=== PATIENT | male | born 1980 | race Caucasian/White ===

== ENCOUNTER 2017-04-21 15:02 | Emergency (ER) | payer SELFPAY ==
--- NOTE | 2017-04-21 15:26 | ED CLINICAL REPORT ---
Clinical Report - Physicians/Mid Levels [facility] [address] [place] [address] 04/21/2017 15:02 Patient: TONYA JENKINS Time Seen: 16:21 Apr 21 2017. Arrived- By private vehicle. HISTORY OF PRESENT ILLNESS Chief Complaint: DENTAL PAIN. (Patient woke up with dental pain, worsening on the upper aspect, with swelling. Reports history of prior IV drug use, has been clean for 9 years, however this took a total 1 his teeth. Denies any difficulty with swallowing.). REVIEW OF SYSTEMS No fever, cough, difficulty breathing, chest pain or diarrhea. No abdominal pain. All systems otherwise negative, except as recorded above. SOCIAL HISTORY Current every day smoker. Alcohol use. History of drug use: marijuana. ADDITIONAL NOTES The nursing notes have been reviewed. PHYSICAL EXAM Vital Signs: 04/21/2017 15:08 BP: 141/98. HR: 98. RR: 16. O2 saturation: 98%. Temp: 98.9 F. Pain level now: 0/10. Appearance: Alert. Head: Normal external inspection. Eyes: Conjunctivae and eyelids normal. ENT: Nose normal. Pharynx normal. Lips normal. No trismus present. Uvula midline. No purulent nasal discharge. Neck: Trachea midline. No adenopathy. No meningeal signs. CVS: Normal heart rate and rhythm. Heart sounds normal. Respiratory: No respiratory distress. Breath sounds normal. Neuro: Oriented X 3. PROGRESS AND PROCEDURES Course of Care: Here in the ER patient with no signs of uvular shift. No facial swelling. No trismus. No signs of Bird's angina. Patient afebrile. Patient very stable. Fall palpation. Patient is stable. Patient/family counseled. Disposition: Discharged. CLINICAL IMPRESSION Mild dental pain. INSTRUCTIONS Drink plenty of fluids. (salt water rinses). Prescription Medications: Amoxicillin 500 mg capsules: take 1 orally every 8 hours. No refills. Follow-up: Follow up with your doctor in three days. (Electronically signed by Cleo Byrd P.A.-C 04/21/2017 16:55)
--- NOTE | 2017-04-21 15:26 | ED NURSING NOTES ---
Clinical Report - Nurses [facility] [address] [place] [address] 04/21/2017 15:02 Patient: TONYA JENKINS TRIAGE Triage time 15:Apr 21 2017. Acuity: LEVEL 3. Chief Complaint: SWELLING OF JAW / FACE. Alert. No acute distress. --15:11 Lo Wetzel R.N. 15:08 04/21/17. BP: 141/98. HR: 98. RR: 16. O2 saturation: 98%. Temp: 98.9 F. Pain level now: 0/10. --15:11 Lo Wetzel R.N. ( pt denies pain). --15:34 Lo Wetzel R.N. 15:34 04/21/17. Pain level now: 0/10. --15:34 Lo Wetzel R.N. Weight: 72.5 kg stated. Height/Length: 70 inches Per Patient. BMI: 22.9. --15:11 Lo Wetzel R.N. Medications Methadone HCl Oral 95mg, daily. --15:09 Lo Wetzel R.N. Allergies None. --15:09 Lo Wetzel R.N. History Arrived by private vehicle. Historian: patient. This started today. He has had swelling of the left jaw. Treatment BAG LOADER: None. PAST MEDICAL HX: Immunizations: up-to-date. SOCIAL HX: Current every day heavy tobacco smoker (cigarette)- 1 pack per day. Occasional alcohol use. History of drug use: marijuana. No infectious disease exposure. SELF HARM ASSESSMENT: A self harm assessment was performed. The patient answered "no" to the question "Do you have thoughts of harming or killing yourself?" and "Have you recently had thoughts about harming or killing others?". FALL RISK ASSESSMENT: Fall risk assessment completed. No fall risk identified. NUTRITIONAL RISK ASSESSMENT: The nutritional risk assessment revealed no deficiencies. FUNCTIONAL ASSESSMENT: Functional assessment: no impairments noted. LEARNING NEEDS ASSESSMENT: The learning needs assessment revealed no barriers. ABUSE ASSESSMENT: Abuse assessment: The patient was asked "Do you feel safe in your home?". SKIN INTEGRITY ASSESSMENT: Skin integrity risk assessment completed. No skin integrity risk identified. --15:11 Lo Wetzel R.N. PROBLEMS: Soft Tissue Foreign Body. Rib Fracture. Tetanus Status. Dental Caries. Immunizations. Abdominal Pain. Constipation. Crohn's Disease. Addiction. --15:09 Lo Wetzel R.N. ADDITIONAL SURGERIES: Appendectomy. Fracture Repair. --15:09 Lo Wetzel R.N. Interventions ID band on patient. To room. --15:11 Lo Wetzel R.N. PHYSICAL ASSESSMENT Ambulatory to room. GENERAL / NEURO / PSYCH: Alert. Oriented X 4. Appears in no acute distress. HEENT: Voice within normal limits. Dental decay. RESPIRATORY: Respirations not labored. SKIN: Skin is warm and dry. --15:12 Lo Wetzel R.N. NURSING PROGRESS NOTES Patient identifiers checked. Call light placed in reach. Patient placed in chair. --15:12 Lo Wetzel R.N. DISPOSITION / DISCHARGE Departure time: 15:34 Apr 21 2017. Condition at departure: unchanged. No learning barriers present. Discharge instructions provided and reviewed with the patient. Reviewed referral to a dentist and primary care physician for followup. Patient verbalized understanding. Written instructions provided in Italian. The patient was discharged home. He left the Emergency Department ambulatory and via private vehicle. Patient driving. FALL RISK ASSESSMENT: Fall risk assessment completed. No fall risk identified. --15:34 Lo Wetzel R.N. Locked/Released at 04/22/2017 0:08 by Lo Wetzel R.N.
--- NOTE | 2017-04-21 15:26 | ED CLINICAL REPORT ---
Clinical Report - Physicians/Mid Levels [facility] [address] [place] [address] 04/21/2017 15:02 Patient: TONYA JENKINS Time Seen: 16:21 Apr 21 2017. Arrived- By private vehicle. HISTORY OF PRESENT ILLNESS Chief Complaint: DENTAL PAIN. (Patient woke up with dental pain, worsening on the upper aspect, with swelling. Reports history of prior IV drug use, has been clean for 9 years, however this took a total 1 his teeth. Denies any difficulty with swallowing.). REVIEW OF SYSTEMS No fever, cough, difficulty breathing, chest pain or diarrhea. No abdominal pain. All systems otherwise negative, except as recorded above. SOCIAL HISTORY Current every day smoker. Alcohol use. History of drug use: marijuana. ADDITIONAL NOTES The nursing notes have been reviewed. PHYSICAL EXAM Vital Signs: 04/21/2017 15:08 BP: 141/98. HR: 98. RR: 16. O2 saturation: 98%. Temp: 98.9 F. Pain level now: 0/10. Appearance: Alert. Head: Normal external inspection. Eyes: Conjunctivae and eyelids normal. ENT: Nose normal. Pharynx normal. Lips normal. No trismus present. Uvula midline. No purulent nasal discharge. Neck: Trachea midline. No adenopathy. No meningeal signs. CVS: Normal heart rate and rhythm. Heart sounds normal. Respiratory: No respiratory distress. Breath sounds normal. Neuro: Oriented X 3. PROGRESS AND PROCEDURES Course of Care: Here in the ER patient with no signs of uvular shift. No facial swelling. No trismus. No signs of Bird's angina. Patient afebrile. Patient very stable. Fall palpation. Patient is stable. Patient/family counseled. Disposition: Discharged. CLINICAL IMPRESSION Mild dental pain. INSTRUCTIONS Drink plenty of fluids. (salt water rinses). Prescription Medications: Amoxicillin 500 mg capsules: take 1 orally every 8 hours. No refills. Follow-up: Follow up with your doctor in three days. (Electronically signed by Cleo Byrd P.A.-C 04/21/2017 16:55)
--- NOTE | 2017-04-21 15:26 | ED NURSING NOTES ---
Clinical Report - Nurses [facility] [address] [place] [address] 04/21/2017 15:02 Patient: TONYA JENKINS TRIAGE Triage time 15:Apr 21 2017. Acuity: LEVEL 3. Chief Complaint: SWELLING OF JAW / FACE. Alert. No acute distress. --15:11 Lo Wetzel R.N. 15:08 04/21/17. BP: 141/98. HR: 98. RR: 16. O2 saturation: 98%. Temp: 98.9 F. Pain level now: 0/10. --15:11 Lo Wetzel R.N. ( pt denies pain). --15:34 Lo Wetzel R.N. 15:34 04/21/17. Pain level now: 0/10. --15:34 Lo Wetzel R.N. Weight: 72.5 kg stated. Height/Length: 70 inches Per Patient. BMI: 22.9. --15:11 Lo Wetzel R.N. Medications Methadone HCl Oral 95mg, daily. --15:09 Lo Wetzel R.N. Allergies None. --15:09 Lo Wetzel R.N. History Arrived by private vehicle. Historian: patient. This started today. He has had swelling of the left jaw. 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 PAST MEDICAL HX: Immunizations: up-to-date. SOCIAL HX: Current every day heavy tobacco smoker (cigarette)- 1 pack per day. Occasional alcohol use. History of drug use: marijuana. No infectious disease exposure. SELF HARM ASSESSMENT: A self harm assessment was performed. The patient answered "no" to the question "Do you have thoughts of harming or killing yourself?" and "Have you recently had thoughts about harming or killing others?". FALL RISK ASSESSMENT: Fall risk assessment completed. No fall risk identified. NUTRITIONAL RISK ASSESSMENT: The nutritional risk assessment revealed no deficiencies. FUNCTIONAL ASSESSMENT: Functional assessment: no impairments noted. LEARNING NEEDS ASSESSMENT: The learning needs assessment revealed no barriers. ABUSE ASSESSMENT: Abuse assessment: The patient was asked "Do you feel safe in your home?". SKIN INTEGRITY ASSESSMENT: Skin integrity risk assessment completed. No skin integrity risk identified. --15:11 Lo Wetzel R.N. PROBLEMS: Soft Tissue Foreign Body. Rib Fracture. Tetanus Status. Dental Caries. Immunizations. Abdominal Pain. Constipation. Crohn's Disease. Addiction. --15:09 Lo Wetzel R.N. ADDITIONAL SURGERIES: Appendectomy. Fracture Repair. --15:09 Lo Wetzel R.N. Interventions ID band on patient. To room. --15:11 Lo Wetzel R.N. PHYSICAL ASSESSMENT Ambulatory to room. GENERAL / NEURO / PSYCH: Alert. Oriented X 4. Appears in no acute distress. HEENT: Voice within normal limits. Dental decay. RESPIRATORY: Respirations not labored. SKIN: Skin is warm and dry. --15:12 Lo Wetzel R.N. NURSING PROGRESS NOTES Patient identifiers checked. Call light placed in reach. Patient placed in chair. --15:12 Lo Wetzel R.N. DISPOSITION / DISCHARGE Departure time: 15:34 Apr 21 2017. Condition at departure: unchanged. No learning barriers present. Discharge instructions provided and reviewed with the patient. Reviewed referral to a dentist and primary care physician for followup. Patient verbalized understanding. Written instructions provided in Maltese. The patient was discharged home. He left the Emergency Department ambulatory and via private vehicle. Patient driving. FALL RISK ASSESSMENT: Fall risk assessment completed. No fall risk identified. --15:34 Lo Wetzel R.N. Locked/Released at 04/22/2017 0:08 by Lo Wetzel R.N.
--- NOTE | 2017-04-22 00:08 | ED MAR SUMMARY ---
..... Medication Administration Record [facility] [address] [place], [place] [id number] Patient: TONYA JENKINS Visit ID: [id number] 36y, M Weight: 72.5 kg Height/Length: 70 in BMI: 22.9 ALLERGIES: None
--- NOTE | 2017-04-22 00:08 | ED DISCHARGE INSTRUCTIONS ---
Patient: TONYA JENKINS General Instructions VisitID: [id number] [place] [address] 36y, M Registration Date/Time: 04/21/2017 Mild dental pain. INSTRUCTIONS Drink plenty of fluids. (salt water rinses). Prescription Medications: Amoxicillin 500 mg capsules: take 1 orally every 8 hours. No refills. Follow-up: Follow up with your doctor in three days. ADDITIONAL INFORMATION Dental Pain A crack or cavity in the tooth, which exposes the sensitive inner area of the tooth can cause tooth pain. An infection in the gum or the root of the tooth can cause pain and swelling. The pain is often made worse by drinking hot or cold fluids, or biting on hard foods. Pain may spread from the tooth to the ear or jaw on the same side. Home Care: Avoid hot and cold foods and liquids since your tooth may be sensitive to temperature changes. If your tooth is chipped or cracked, or if there is a large open cavity, apply OIL OF CLOVES (available cjdn-vxc-orcismx in drug stores) directly to the tooth to reduce pain. Some pharmacies carry an mito-qby-aesmyzb "toothache kit." This contains a paste, which can be applied over the exposed tooth to decrease sensitivity. A cold pack on your jaw over the sore area may help reduce pain. You may use acetaminophen (Tylenol) or ibuprofen (Motrin, Advil) to control pain, unless another medicine was prescribed. [ NOTE: If you have chronic liver or kidney disease or ever had a stomach ulcer or GI bleeding, talk with your doctor before using these medicines.] If you have signs of an infection, an antibiotic will be given. Take it as directed. Follow-Up as directed with a dentist. Your pain may go away with the treatment given. However, only a dentist can fully evaluate and treat the cause and prevent the pain from coming back again. TOOTHACHE IS A SIGN OF DISEASE IN YOUR TOOTH AND SHOULD BE EXAMINED AND TREATED BY A DENTIST. Get Prompt Medical Attention if any of the following occur: Your face becomes swollen or red Pain worsens or spreads to the neck Fever over 100.4 F (38.0 C) Unusual drowsiness; headache or stiff neck; weakness or fainting Pus drains from the tooth Difficulty swallowing or breathing Dental Abscess A dental abscess is an infection of the tooth socket. It often starts with a crack or cavity in the tooth. A pocket of pus forms between the tooth and the bone. The infection causes pain and swelling of the gum, cheek or jaw. The pain is often made worse by drinking hot or cold fluids, or biting on hard foods. Pain may be felt in the facial sinus or in the ear. A severe infection can interfere with swallowing and breathing. In the emergency department or clinic, you will be started on an antibiotic. However, final treatment requires drainage of the pus. This can be done by removing the tooth or performing a root canal. A root canal is done by an oral surgeon and involves drilling an opening in the tooth to drain the pus. After the infection has healed, a crown is placed over the tooth. Home care The following guidelines will help you care for your abscess at home: Avoid hot and cold foods and liquids since your tooth may be sensitive to temperature changes. If your tooth is chipped or cracked, or if there is a large open cavity, applyoil of cloves(available kvyv-ybu-vbtwuhz in drug stores) directly to the tooth to reduce pain. Some pharmacies carry an wqbf-bvj-uwrlplg "toothache kit". This contains oil of cloves and a paste, which can be applied over the exposed tooth to decrease sensitivity. Apply an ice pack (ice cubes in a plastic bag, wrapped in a towel) over the injured area for 20 minutes every 12 hours the first day for pain relief. Continue this 34 times a day until the pain and swelling goes away. You may use acetaminophen or ibuprofen to control pain, unless another medicine was prescribed. If you have chronic liver or kidney disease or ever had a stomach ulcer or GI bleeding, talk with your doctor before using these medicines. An antibiotic will be prescribed. Take it as directed until completed, even if you are feeling better sooner. Follow-up care Follow up as directed with a dentist or oral surgeon. Even though your pain may improve with the treatment given today, only a dentist or oral surgeon can provide full treatment for this problem. When to seek medical care Get prompt medical attention or contact your doctor if any of the following occur: Your face or eyelid becomes swollen or red Pain worsens or spreads to the neck Fever over 100.4F (38.0C) Unusual drowsiness; headache or stiff neck; weakness, or fainting Pus drains from the gum or tooth Difficulty talking, swallowing or breathing Unable to open your mouth wide Amoxicillin Trihydrate Oral tablet What is this medicine? AMOXICILLIN (a mox i WILLIE in) is a penicillin antibiotic. It is used to treat certain kinds of bacterial infections. It will not work for colds, flu, or other viral infections. How should I use this medicine? Take this medicine by mouth with a glass of water. Follow the directions on your prescription label. You may take this medicine with food or on an empty stomach. Take your medicine at regular intervals. Do not take your medicine more often than directed. Take all of your medicine as directed even if you think your are better. Do not skip doses or stop your medicine early. Talk to your finish photographer regarding the use of this medicine in children. While this drug may be prescribed for selected conditions, precautions do apply. What side effects may I notice from receiving this medicine? Side effects that you should report to your doctor or health restorative care technician as soon as possible: allergic reactions like skin rash, itching or hives, swelling of the face, lips, or tongue breathing problems dark urine redness, blistering, peeling or loosening of the skin, including inside the mouth seizures severe or watery diarrhea trouble passing urine or change in the amount of urine unusual bleeding or bruising unusually weak or tired yellowing of the eyes or skin Side effects that usually do not require medical attention (report to your doctor or health restorative care technician if they continue or are bothersome): dizziness headache stomach upset trouble sleeping What may interact with this medicine? amiloride control pills chloramphenicol macrolides probenecid sulfonamides tetracyclines What if I miss a dose? If you miss a dose, take it as soon as you can. If it is almost time for your next dose, take only that dose. Do not take double or extra doses. Where should I keep my medicine? Keep out of the reach of children. Store between 68 and 77 degrees F (20 and 25 degrees C). Keep bottle closed tightly. Throw away any unused medicine after the expiration date. What should I tell my health care provider before I take this medicine? They need to know if you have any of these conditions: asthma kidney disease an unusual or allergic reaction to amoxicillin, other penicillins, cephalosporin antibiotics, other medicines, foods, dyes, or preservatives or trying to get breast-feeding What should I watch for while using this medicine? Tell your doctor or health restorative care technician if your symptoms do not improve in 2 or 3 days. Take all of the doses of your medicine as directed. Do not skip doses or stop your medicine early. If you are diabetic, you may get a false positive result for sugar in your urine with certain brands of urine tests. Check with your doctor. Do not treat diarrhea with rjfa-ilo-qblraoc products. Contact your doctor if you have diarrhea that lasts more than 2 days or if the diarrhea is severe and watery. You have been given the following additional information: Dental Pain Tooth Abscess Amoxicillin Trihydrate Oral tablet (Electronically signed by Cleo Byrd P.A.-C 04/21/2017 16:55)
--- NOTE | 2017-04-22 00:08 | ED DISCHARGE INSTRUCTIONS ---
Patient: TONYA JENKINS General Instructions [facility] VisitID: [id number] [place] [address] 36y, M Registration Date/Time: 04/21/2017 Mild dental pain. INSTRUCTIONS Drink plenty of fluids. (salt water rinses). Prescription Medications: Amoxicillin 500 mg capsules: take 1 orally every 8 hours. No refills. Follow-up: Follow up with your doctor in three days. ADDITIONAL INFORMATION Dental Pain A crack or cavity in the tooth, which exposes the sensitive inner area of the tooth can cause tooth pain. An infection in the gum or the root of the tooth can cause pain and swelling. The pain is often made worse by drinking hot or cold fluids, or biting on hard foods. Pain may spread from the tooth to the ear or jaw on the same side. Home Care: Avoid hot and cold foods and liquids since your tooth may be sensitive to temperature changes. If your tooth is chipped or cracked, or if there is a large open cavity, apply OIL OF CLOVES (available vcjw-cch-bphrmkr in drug stores) directly to the tooth to reduce pain. Some pharmacies carry an fyos-fsf-mpreaar "toothache kit." This contains a paste, which can be applied over the exposed tooth to decrease sensitivity. A cold pack on your jaw over the sore area may help reduce pain. You may use acetaminophen (Tylenol) or ibuprofen (Motrin, Advil) to control pain, unless another medicine was prescribed. [ NOTE: If you have chronic liver or kidney disease or ever had a stomach ulcer or GI bleeding, talk with your doctor before using these medicines.] If you have signs of an infection, an antibiotic will be given. Take it as directed. Follow-Up as directed with a dentist. Your pain may go away with the treatment given. However, only a dentist can fully evaluate and treat the cause and prevent the pain from coming back again. TOOTHACHE IS A SIGN OF DISEASE IN YOUR TOOTH AND SHOULD BE EXAMINED AND TREATED BY A DENTIST. Get Prompt Medical Attention if any of the following occur: Your face becomes swollen or red Pain worsens or spreads to the neck Fever over 100.4 F (38.0 C) Unusual drowsiness; headache or stiff neck; weakness or fainting Pus drains from the tooth Difficulty swallowing or breathing Dental Abscess A dental abscess is an infection of the tooth socket. It often starts with a crack or cavity in the tooth. A pocket of pus forms between the tooth and the bone. The infection causes pain and swelling of the gum, cheek or jaw. The pain is often made worse by drinking hot or cold fluids, or biting on hard foods. Pain may be felt in the facial sinus or in the ear. A severe infection can interfere with swallowing and breathing. In the emergency department or clinic, you will be started on an antibiotic. However, final treatment requires drainage of the pus. This can be done by removing the tooth or performing a root canal. A root canal is done by an oral surgeon and involves drilling an opening in the tooth to drain the pus. After the infection has healed, a crown is placed over the tooth. Home care The following guidelines will help you care for your abscess at home: Avoid hot and cold foods and liquids since your tooth may be sensitive to temperature changes. If your tooth is chipped or cracked, or if there is a large open cavity, applyoil of cloves(available pvlk-rsh-ukxxkmv in drug stores) directly to the tooth to reduce pain. Some pharmacies carry an ouyu-gxz-hhpxirh "toothache kit". This contains oil of cloves and a paste, which can be applied over the exposed tooth to decrease sensitivity. Apply an ice pack (ice cubes in a plastic bag, wrapped in a towel) over the injured area for 20 minutes every 12 hours the first day for pain relief. Continue this 34 times a day until the pain and swelling goes away. You may use acetaminophen or ibuprofen to control pain, unless another medicine was prescribed. If you have chronic liver or kidney disease or ever had a stomach ulcer or GI bleeding, talk with your doctor before using these medicines. An antibiotic will be prescribed. Take it as directed until completed, even if you are feeling better sooner. Follow-up care Follow up as directed with a dentist or oral surgeon. Even though your pain may improve with the treatment given today, only a dentist or oral surgeon can provide full treatment for this problem. When to seek medical care Get prompt medical attention or contact your doctor if any of the following occur: Your face or eyelid becomes swollen or red Pain worsens or spreads to the neck Fever over 100.4F (38.0C) Unusual drowsiness; headache or stiff neck; weakness, or fainting Pus drains from the gum or tooth Difficulty talking, swallowing or breathing Unable to open your mouth wide Amoxicillin Trihydrate Oral tablet What is this medicine? AMOXICILLIN (a mox i WILLIE in) is a penicillin antibiotic. It is used to treat certain kinds of bacterial infections. It will not work for colds, flu, or other viral infections. How should I use this medicine? Take this medicine by mouth with a glass of water. Follow the directions on your prescription label. You may take this medicine with food or on an empty stomach. Take your medicine at regular intervals. Do not take your medicine more often than directed. Take all of your medicine as directed even if you think your are better. Do not skip doses or stop your medicine early. Talk to your interior designer regarding the use of this medicine in children. While this drug may be prescribed for selected conditions, precautions do apply. What side effects may I notice from receiving this medicine? Side effects that you should report to your doctor or health manager critical care as soon as possible: allergic reactions like skin rash, itching or hives, swelling of the face, lips, or tongue breathing problems dark urine redness, blistering, peeling or loosening of the skin, including inside the mouth seizures severe or watery diarrhea trouble passing urine or change in the amount of urine unusual bleeding or bruising unusually weak or tired yellowing of the eyes or skin Side effects that usually do not require medical attention (report to your doctor or health manager critical care if they continue or are bothersome): dizziness headache stomach upset trouble sleeping What may interact with this medicine? amiloride control pills chloramphenicol macrolides probenecid sulfonamides tetracyclines What if I miss a dose? If you miss a dose, take it as soon as you can. If it is almost time for your next dose, take only that dose. Do not take double or extra doses. Where should I keep my medicine? Keep out of the reach of children. Store between 68 and 77 degrees F (20 and 25 degrees C). Keep bottle closed tightly. Throw away any unused medicine after the expiration date. What should I tell my health care provider before I take this medicine? They need to know if you have any of these conditions: asthma kidney disease an unusual or allergic reaction to amoxicillin, other penicillins, cephalosporin antibiotics, other medicines, foods, dyes, or preservatives or trying to get breast-feeding What should I watch for while using this medicine? Tell your doctor or health manager critical care if your symptoms do not improve in 2 or 3 days. Take all of the doses of your medicine as directed. Do not skip doses or stop your medicine early. If you are diabetic, you may get a false positive result for sugar in your urine with certain brands of urine tests. Check with your doctor. Do not treat diarrhea with llce-dro-sjdxtrn products. Contact your doctor if you have diarrhea that lasts more than 2 days or if the diarrhea is severe and watery. You have been given the following additional information: Dental Pain Tooth Abscess Amoxicillin Trihydrate Oral tablet (Electronically signed by Cleo Byrd P.A.-C 04/21/2017 16:55)
--- NOTE | 2017-04-22 00:08 | ED MED RECONCILIATION SUMMARY ---
Patient: TONYA JENKINS Medication Reconciliation Report [facility] VisitID: [id number] [place] [address] 36y, M Registration Date/Time: 04/21/2017 Weight: 72.5 kg Height/Length: 70 in. BMI: 22.9 ALLERGIES: None The patient's Home Medications are listed below: THE FOLLOWING MEDICATIONS NEED TO BE RECONCILED: Methadone HCl Oral 95mg, daily The source(s) of the original Home Medication information: Not obtained. The following Medications were given to the patient in the Emergency Department: None. The following Medications were prescribed to the patient: Amoxicillin 500 mg capsules: take 1 orally every 8 hours. No refills. -- Cleo Byrd P.A.-C
--- NOTE | 2017-04-22 00:08 | ED MED RECONCILIATION SUMMARY ---
Patient: TONYA JENKINS Medication Reconciliation Report [facility] VisitID: [id number] [place] [address] 36y, M Registration Date/Time: 04/21/2017 Weight: 72.5 kg Height/Length: 70 in. BMI: 22.9 ALLERGIES: None The patient's Home Medications are listed below: THE FOLLOWING MEDICATIONS NEED TO BE RECONCILED: Methadone HCl Oral 95mg, daily The source(s) of the original Home Medication information: Not obtained. The following Medications were given to the patient in the Emergency Department: None. The following Medications were prescribed to the patient: Amoxicillin 500 mg capsules: take 1 orally every 8 hours. No refills. -- Cleo Byrd P.A.-C
--- NOTE | 2017-04-22 00:08 | ED MAR SUMMARY ---
..... Medication Administration Record [facility] [address] [place], [place] [id number] Patient: TONYA JENKINS Visit ID: [id number] 36y, M Weight: 72.5 kg Height/Length: 70 in BMI: 22.9 ALLERGIES: None
== END 2017-04-21 15:35 | disposition home or self-care (01) ==
LOC: ED SRH 15:02
DX: K08.89 Other specified disorders of teeth and supporting structures (principal)